=== PATIENT | female | born 1970 | race African-American/Black ===

== ENCOUNTER 2017-01-11 06:33 | Emergency (ER) | payer SELFPAY ==
[~2017-01-11] VITALS: Ht 172.7 cm; Wt 72.0 kg
[2017-01-11 07:54] LABS: BASOPHILS % 0.4 % (0.0-2.0); EOSINOPHILS % 0.8 % (0.0-5.0); HEMATOCRIT. 37.4 % (36.0-48.0); HEMOGLOBIN. 12.4 g/dL (12.0-16.0); LYMPHOCYTES % 22.8 % (20.0-50.0); MEAN CORPUSCULAR HEMOGLOBIN 28.8 pg (28.0-32.0); MEAN CORPUSCULAR VOLUME 87.1 fL (81.0-99.0); MEAN PLATELET VOLUME 9.6 fl (7.4-10.4); MONOCYTES % 5.7 % (2.0-8.0); NEUTROPHILS % 70.3 % (40.0-76.0); PLATELET 226 x1000/uL (130-400); RED BLOOD CELL COUNT 4.29 mill/uL (4.2-5.4); RED CELL DISTRIBUTION WIDTH 14.5 % (11.6-14.6)
[2017-01-11 08:01] LABS: INR 1.1; PROTHROMBIN TIME 11.8 sec (9.4-11.6)
[2017-01-11 08:13] LABS: CARBON DIOXIDE 26 mEq/L (21-32); CHLORIDE 108 mEq/L (98-107); TROPONIN I < 0.02 ng/mL (0.00-0.04)
[2017-01-11] MEDS ORDERED: ASPIRIN 325MG EC TABLET PO ONE (09:15)
[2017-01-11] MEDS ORDERED: MORPHINE SULFATE 4 MG/ML CPJ (NOT FOR IM USE) IV ONE (12:45)
[2017-01-11] MEDS ORDERED: ACETAMINOPHEN 325MG TABLET PO ONE (13:00)
[2017-01-11 15:37] VITALS: BP 132/72
== END 2017-01-11 15:39 | disposition home or self-care (01) ==
LOC: ER 06:33 → EDBEDREQ 09:40 → ENRESERV 14:05 → CANRESERV 14:05 → ER 15:39 → CANBEDREQ 16:29
DX: R07.9 Chest pain, unspecified (principal); J45.909 Unspecified asthma, uncomplicated
CPT/HCPCS: 36415; 71010; 80053; 83880; 84484; 85025; 85610; 93005; 99285; Z7610

== ENCOUNTER 2018-11-06 08:07 | Emergency (ER) | payer OTHER ==
[~2018-11-06] VITALS: Ht 167.6 cm; Wt 84.0 kg
[2018-11-06 09:25] LABS: BASOPHILS % 0.3 % (0.0-2.0); HEMATOCRIT. 37.9 % (36.0-48.0); HEMOGLOBIN. 12.9 g/dL (12.0-16.0); LYMPHOCYTES % 26.6 % (20.0-50.0); MEAN CORPUSCULAR HEMOGLOBIN 30.4 pg (28.0-32.0); MEAN CORPUSCULAR VOLUME 89.2 fL (81.0-99.0); MEAN PLATELET VOLUME 9.5 fl (7.4-10.4); NEUTROPHILS % 67.1 % (40.0-76.0); PLATELET 225 x1000/uL (130-400); RED BLOOD CELL COUNT 4.24 mill/uL (4.2-5.4); RED CELL DISTRIBUTION WIDTH 15.5 % (11.6-14.6)
[2018-11-06 09:38] LABS: CHLORIDE 111 mEq/L (98-107)
[2018-11-06 10:05] VITALS: BP 126/93
== END 2018-11-06 11:10 | disposition home or self-care (01) ==
LOC: ER 08:07
DX: R07.89 Other chest pain (principal); J45.909 Unspecified asthma, uncomplicated; E11.9 Type 2 diabetes mellitus without complications
CPT/HCPCS: 36415; 71045; 83880; 84484; 93005; 99284

== ENCOUNTER 2022-04-13 12:18 | Emergency (ER) | payer MEDICAID, OTHER ==
[~2022-04-13] VITALS: Ht 157.5 cm; Wt 91.0 kg
[2022-04-13] MEDS ORDERED: SODIUM CHLORIDE 0.9% 1,000 ML IV ONE ×2 (13:15→14:30)
[2022-04-13 13:44] LABS: BG BASE EXCESS 0.2 mmol/L (-2.0-2.0); BG CARBOXYHEMOGLOBIN 6.5 % (0.5-1.5); BG DEOXYHEMOGLOBIN 5.6 % (0.0-5.0); BG FRACTION INSPIRED OXYGEN 21; BG HCO3 ACT 24.6 mmol/L (22.0-26.0); BG METHEMOGLOBIN 0.1 % (0.0-1.5); BG OXYHEMOGLOBIN 87.8 % (94.0-97.0); BG PCO2 39.1 mmHg (35.0-45.0); BG PH 7.417 (7.350-7.450); BG PO2 62.4 mmHg (75.0-100.0); BG SAMPLE SITE RIGHT BRACHIAL; BG TOTAL HEMOGLOBIN 14.7 g/dL (12.0-18.0); BG VENT MODE ROOM AIR
[2022-04-13 14:02] LABS: CHLORIDE 98 mEq/L (98-107)
[2022-04-13 14:12] LABS: BETA HYDROXYBUTYRATE 0.2 mMol/L (0.0-0.3)
[2022-04-13 14:15] LABS: BASOPHILS % 0.2 % (0.0-2.0); EOSINOPHILS % 0.9 % (0.0-5.0); HEMATOCRIT. 41.6 % (36.0-48.0); HEMOGLOBIN. 14.1 g/dL (12.0-16.0); LYMPHOCYTES % 24.3 % (20.0-50.0); MEAN CORPUSCULAR HEMOGLOBIN 29.7 pg (28.0-32.0); MONOCYTES % 4.5 % (2.0-8.0); NEUTROPHILS % 70.1 % (40.0-76.0); RED BLOOD CELL COUNT 4.73 mill/uL (4.2-5.4); RED CELL DISTRIBUTION WIDTH 14.5 % (11.6-14.6)
[2022-04-13 15:17] LABS: PLATELET 187 x1000/uL (130-400)
[2022-04-13 15:18] LABS: MEAN PLATELET VOLUME 10.7 fl (7.4-10.4)
[2022-04-13 15:35] LABS: CLARITY URINE HAZY (CLEAR); COLOR URINE YELLOW (YELLOW)
[2022-04-13 15:36] LABS: KETONES URINE NEGATIVE (NEGATIVE); LEUKOCYTE ESTERASE URINE NEGATIVE (NEGATIVE); NITRITE URINE NEGATIVE (NEGATIVE); OCCULT BLOOD URINE 2+ (NEGATIVE); PROTEIN URINE NEGATIVE (NEGATIVE); UROBILINOGEN URINE 0.2 E.U./dL (0.2-1.0)
[2022-04-13 15:41] VITALS: BP 113/66
[2022-04-13 15:56] LABS: HCG SCREEN NEGATIVE
[2022-04-13] MEDS ORDERED: INSULIN REGULAR (HUMULIN R) 300UNITS/3ML VIAL SUBCUT NR (16:15)
== END 2022-04-13 18:07 | disposition left against medical advice (07) ==
LOC: ER 12:18
DX: E11.65 Type 2 diabetes mellitus with hyperglycemia (principal); J45.909 Unspecified asthma, uncomplicated; F17.210 Nicotine dependence, cigarettes, uncomplicated; Z78.0 Asymptomatic menopausal state
CPT/HCPCS: 36415; 36600; 71045; 80053; 81003; 82010; 82375; 82805; 82962; 83690; 84484; 84703; 85025; 87077; 87086; 87186; 93005; 96360; 96372; 99285; J1815; J7030